=== PATIENT | female | born 1960 | race Caucasian/White ===

== ENCOUNTER 2024-04-03 16:29 | Emergency (ER) | payer SELFPAY ==
[~2024-04-03] VITALS: Ht 172.7 cm; Wt 127.3 kg
[2024-04-03] MEDS ORDERED: ALBUTEROL/IPRATROPIUM 3 ML NEB ONE (16:41)
[2024-04-03 16:43] LABS: HEMATOCRIT 50.9 % (35.0-50.0); HEMOGLOBIN 16.8 g/dL (12.0-18.0); MCH 33.8 (27-36); MCV 102.3 fl (81-99); PLATELET COUNT 261 K/uL (140-440); RBC 4.98 M/ul (4.3-5.7); RDW 15.4 (10.5-15.0)
[2024-04-03] MEDS ORDERED: SUCCINYLCHOLINE CHLORIDE 20 MG/ML MDV IV ONE (16:45)
[2024-04-03] MEDS ORDERED: ETOMIDATE 40 MG/20 ML VIAL IV ONE (16:45)
[2024-04-03] MEDS ORDERED: LIDOCAINE 2% VISCOUS 6 ML SYR TOP ONE (16:45)
[2024-04-03] MEDS ORDERED: propofoL 100 ML IV SCH (16:45)
[2024-04-03] MEDS ORDERED: MIDAZOLAM HCL 2 MG/2 ML VIAL ONE (16:48)
[2024-04-03 16:54] LABS: PARTIAL THROMBOPLASTIN TIME 22.2 Sec (22.9-41.3)
[2024-04-03 16:55] LABS: INR 0.99 (0.80-1.30); PROTIME 12.4 Sec (11.2-14.2)
[2024-04-03 16:59] LABS: EOSINOPHILS, MANUAL DIFF 5; LYMPHOCYTES, MANUAL DIFF 50; MONOCYTES, MANUAL DIFF 3; NEUTROPHILS, MANUAL DIFF 42
[2024-04-03] MEDS ORDERED: MIDAZOLAM HCL 2 MG/2 ML VIAL IV ONE ×2 (17:00)
[2024-04-03 17:01] LABS: ALBUMIN 3.9 g/dL (3.4-5.0); ANION GAP 16.1 (7-21); BILIRUBIN, TOTAL 0.5 ng/dL (0.2-1.0); BUN/CREATININE RATIO 17.1 (6.0-28.6); CALCIUM 8.9 mg/dL (8.5-10.1); CREATININE, SERUM 0.76 mg/dL (0.55-1.02); POTASSIUM 4.1 mmol/L (3.5-5.1); PROTEIN, TOTAL 7.8 g/dL (6.4-8.2)
[2024-04-03 17:05] LABS: AMPHETAMINES, URINE NEGATIVE (NEGATIVE)
[2024-04-03] MEDS ORDERED: levETIRAcetam 500 MG/5 ML VIAL IV ONE (17:15)
[2024-04-03] MEDS ORDERED: niCARdipine HCL 50 MG in DEXTROSE 5% 250 ML IV SCH (17:15)
[2024-04-03] MEDS ORDERED: KETAMINE HCL IN NACL, ISO-OSM 100 ML IV ONE (17:20)
[2024-04-03 17:22] LABS: BARBITURATES, URINE NEGATIVE (NEGATIVE); BENZODIAZEPINE, URINE NEGATIVE (NEGATIVE); BUPRENORPHINE, URINE NEGATIVE (NEGATIVE); CANNABINOID, URINE NEGATIVE (NEGATIVE); COCAINE, URINE NEGATIVE (NEGATIVE); ECSTASY, URINE NEGATIVE (NEGATIVE); FENTANYL, URINE NEGATIVE (NEGATIVE); METHADONE, URINE NEGATIVE (NEGATIVE); OPIATES, URINE NEGATIVE (NEGATIVE); OXYCODONE, URINE NEGATIVE (NEGATIVE); PHENCYCLIDINE, URINE NEGATIVE (NEGATIVE)
[2024-04-03] MEDS ORDERED: KETAMINE HCL IN NACL, ISO-OSM 100 ML IV SCH (17:30)
[2024-04-03 17:41] LABS: BASE EXCESS, BLOOD GAS -1.1 mmol/L (-2-2); HCO3, BLOOD GAS 28.6 mmol/L (22-26); O2 SATURATION, BLOOD GAS 95.9 % (95.0-100.0); PCO2, BLOOD GAS 67.5 mmHg (35-45); PH, BLOOD GAS 7.23 (7.35-7.45); PO2, BLOOD GAS 90 mmHg (80-100); TOTAL CO2, BLOOD GAS 30.7
[2024-04-03 17:42] LABS: OXYGEN RECEIVED, BLOOD GAS 70%
[2024-04-03] MEDS ORDERED: ALBUTEROL/IPRATROPIUM 3 ML NEB INH ONE (18:30)
[2024-04-03] MEDS ORDERED: METOPROLOL SUC100 MG (20:06)
[2024-04-03] MEDS ORDERED: MAG-OXIDE400 MG PO (20:06)
[2024-04-03] MEDS ORDERED: LOSARTAN POTASS50 MG PO (20:06)
[2024-04-03] MEDS ORDERED: TRANEXAMIC ACID IN NACL,ISO-OS 1,000 MG/100 ML PIGGYBACK IV ONE (21:45)
[2024-04-03 22:22] LABS: BASE EXCESS, BLOOD GAS 2.1 mmol/L (-2-2); HCO3, BLOOD GAS 27.7 mmol/L (22-26); O2 SATURATION, BLOOD GAS 93.4 % (95.0-100.0); OXYGEN RECEIVED, BLOOD GAS 60%; PCO2, BLOOD GAS 45.5 mmHg (35-45); PH, BLOOD GAS 7.39 (7.35-7.45); PO2, BLOOD GAS 65 mmHg (80-100); TOTAL CO2, BLOOD GAS 29.1
[2024-04-03 23:22] VITALS: BP 141/69
--- NOTE | 2024-04-04 21:56 | EKG ---
[facility] [address] [facility] [place] [address] Signed Sinus rhythm with marked sinus arrhythmia Possible Left atrial enlargement Borderline ECG No previous ECGs available Confirmed by Chante Lilly MD () on 04/04/2024 9:55:48 PM Electronically Signed By: CHANTE LILLY MD [id number]/[id number] PATIENT NAME: TIGIST JAUREGUI Electrocardiogram DATE OF : 64 PHYSICIAN: CHANTE LILLY MD REPORT #: [id number] REPORT IS CONFIDENTIAL AND NOT TO BE RELEASED WITHOUT AUTHORIZATION
== END 2024-04-03 23:54 | disposition short-term general hospital (02) ==
LOC: ED 16:29
PROVIDERS: Emergency Medicine
DX: I60.8 Other nontraumatic subarachnoid hemorrhage (principal)
CPT/HCPCS: 31500; 36415; 36600; 70450; 70496; 70498; 71045; 80053; 80307; 82803; 84484; 85025; 85610; 85730; 93005; 93010; 94640; G0480; J0330; J1953; J2250; J2704; J3490; J7060; Q9967